=== PATIENT | male | born 1990 | race Caucasian/White ===

== ENCOUNTER 2017-10-13 16:28 | Emergency (ER) | payer SELFPAY ==
[~2017-10-13] VITALS: Ht 175.3 cm; Wt 73.9 kg
[~2017-10-13 16:28] MED LIST: AMOX875 PO; CEPALOZ SUCK-ON; PRED20 PO
[2017-10-13 16:34] VITALS: BP 129/61; PULSE 77; RESP 16; TEMP 97.5; O2SAT 99
--- NOTE | 2017-10-13 17:46 | RADRPT ---
EXAM DATE/TIME: 10/13/2017 17:30 [place] COMPARISON: No previous studies available for comparison. INDICATIONS : Right knee pain and laceration from fall on tile. MEDICAL HISTORY : None. SURGICAL HISTORY : None. ENCOUNTER: Initial ACUITY: 1 day PAIN SCORE: 7/10 LOCATION: Right anterior knee. FINDINGS: Four view examination of the right knee demonstrates no evidence of fracture or dislocation. Bony mi neralization is normal. The articular surfaces are intact. Anterior prepatellar soft tissue lacerati on. CONCLUSION: 1. Prepatellar soft tissue laceration. 2. No acute fracture or dislocation. Denis Miranda MD on October 13, 2017 at 17:42 Board Certified Radiologist. This report was verified electronically.
--- NOTE | 2017-10-13 18:39 | PD ---
HPI Chief Complaint: Injury Time Seen by Provider: 17:14 (Dominga Wang) Time Seen by Provider: 17:14 (Lonnie Abrams MD) Travel History International Travel<30 days: No Contact w/Intl Traveler<30days: No Traveled to known affect area: No (Dominga Wang) International Travel<30 days: No Contact w/Intl Traveler<30days: No Traveled to known affect area: No (Lonnie Abrams MD) History of Present Illness HPI Please see physician anatomic pathology assistant dictation. (Lonnie Abrams MD) PFSH Past Medical History Tetanus Vaccination: < 5 Years (Dominga Wang) Social History Alcohol Use: Yes (occ) Tobacco Use: Yes (1ppd) Substance Use: Yes (MARIJUANA, ALCOHOL) (Dominga Wang) Allergies-Medications (Allergen,Severity, Reaction): Coded Allergies: No Known Allergies (Unverified Adverse Reaction, Unknown, 10/13/17) Reported Meds & Prescriptions Reported Meds & Active Scripts Active Keflex (Cephalexin) 500 Mg Capsule 500 Mg PO Q6H 7 Days (Lonnie Abrams MD) Review of Systems General / Constitutional: No: Fever Eyes: No: Visual changes HENT: No: Headaches Cardiovascular: No: Chest Pain or Discomfort Respiratory: No: Shortness of Breath Gastrointestinal: No: Abdominal Pain Genitourinary: No: Dysuria Musculoskeletal: No: Pain Skin: No Rash Neurologic: No: Weakness Psychiatric: No: Depression Endocrine: No: Polydipsia Hematologic/Lymphatic: No: Easy Bruising (Lonnie Abrams MD) Physical Exam Narrative Please see physician anatomic pathology assistant dictation. (Lonnie Abrams MD) Data Data Last Documented VS Vital Signs Date Time Temp Pulse Resp B/P (MAP) Pulse Ox O2 Delivery O2 Flow Rate FiO2 10/13/17 16:34 97.5 77 16 129/61 (83) 99 (Lonnie Abrams MD) Orders Orders Knee, Complete (4vws) (10/13/17 ) Ed Discharge Order (10/13/17 18:50) (Lonnie Abrams MD) MDM Medical Decision Making Medical Screen Exam Complete: Yes Emergency Medical Condition: Yes Differential Diagnosis Knee laceration, patella fracture, contusion, wound infection Narrative Course 27-year-old male here with laceration to his right knee. He occurred more than 12 hours ago. When he slipped and fell onto tile. He has a deep gaping gaping laceration to the right knee superior to the patella. There is 2 cm separation distance between wound edges. The wound was extensively irrigated. Given his location over the joint and gaping nature of the wound it was very loosely approximated. Prophylactic antibiotics were prescribed. Tetanus immunization is up-to-date. Close follow-up for wound recheck in 2 days. Patient verbalizes understanding and agrees plan (Dominga Wang) Medical Screen Exam Complete: Yes Emergency Medical Condition: Yes Differential Diagnosis Please see physician anatomic pathology assistant dictation. Narrative Course Please see physician anatomic pathology assistant dictation. (Lonnie Abrams MD) Procedures Procedure Narrative LACERATION LOCATION: Right knee LENGTH: 3 cm crescent shape laceration superior aspect of the knee, right penetration is not suspected NUMBER OF STITCHES/ROHAN: 2 sutures to loosely approximate edges REPAIR: The area of the laceration was prepped with Betadine and sterilely draped. The laceration was infiltrated with 1% lidocaine. The wound was copiously irrigated and explored without evidence of foreign body, tendon injury or neurovascular injury. The wound was closed using 3-0 Ethilon. This was a SINGLE layer repair. A sterile dressing was applied. The patient was advised to keep the dressing clean and dry. Patient tolerated the procedure well. (Dominga Wang) Diagnosis Primary Impression: Knee laceration Qualified Codes: S81.011A - Laceration without foreign body, right knee, initial encounter Referrals: Primary Care Physician Additional Instructions: Antibiotics as directed. Wound should be rechecked in 2 days for infection. Watch the area daily with soap and water. Apply clean dry dressing. Sutures need to be removed in 7- 10 days Scripts Cephalexin (Keflex) 500 Mg Capsule 500 MG PO Q6H for Infection for 7 Days, #28 CAP 0 Refills Prov: Dominga Wang 10/13/17 Disposition: 01 DISCHARGE HOME Condition: Stable Dominga Wang Oct 13, 2017 18:39 Lonnie Abrams MD Oct 14, 2017 00:15
[2017-10-13] MEDS ORDERED: CEPH-460 PO (18:40)
== END 2017-10-13 19:20 | disposition home or self-care (01) ==
LOC: PHEFT 16:28
DX: S81.011A Laceration without foreign body, right knee, initial encounter (principal); F17.210 Nicotine dependence, cigarettes, uncomplicated; W01.0XXA Fall on same level from slipping, tripping and stumbling without subsequent striking against object, initial encounter
CPT/HCPCS: 12002; 73564